=== PATIENT | male | born 1985 | race Caucasian/White ===

== ENCOUNTER 2024-12-15 05:00 | Emergency (ER) | payer OTHER, SELFPAY ==
[2024-12-15] VITALS (7 sets, daily range): BP systolic 93–142; BP diastolic 43–78; PULSE 56–84; RESP 16–19; TEMP 36.4–36.7; O2SAT 93–100; BMI 42.0
--- NOTE | 2024-12-15 05:21 | CT_ITS ---
PROCEDURE INFORMATION: Exam: CT Abdomen And Pelvis With Contrast Exam date and time: 12/15/2024 5:50 AM Age: 39 years old Clinical indication: Abdominal pain; Flank; Left; Additional info: Left flank pain TECHNIQUE: Imaging protocol: Computed tomography of the abdomen and pelvis with contrast. Radiation optimization: All CT scans at this facility use at least one of these dose optimization techniques: automated exposure control; mA and/or kV adjustment per patient size (includes targeted exams where dose is matched to clinical indication); or iterative reconstruction. Contrast material: ISOVUE; Contrast volume: 75 ml; Contrast route: IV; COMPARISON: No relevant prior studies available. FINDINGS: Liver: Hepatomegaly 21 cm Gallbladder and biliary ducts: The gallbladder is unremarkable Pancreas: Normal. No ductal dilation. Spleen: Borderline splenomegaly 13 cm Adrenal glands: Normal. No mass. Kidneys and ureters: Five millimeter proximal LEFT ureteral calculus causes mild dilatation of LEFT collecting system and LEFT ureter. The LEFT kidney is edematous and there is LEFT perirenal stranding. Stomach and bowel: Unremarkable. No obstruction. No mucosal thickening. Appendix: No evidence of appendicitis. Intraperitoneal space: Unremarkable. No free air. No significant fluid collection. Vasculature: Unremarkable. No abdominal aortic aneurysm. Lymph nodes: Unremarkable. No enlarged lymph nodes. Urinary bladder: Unremarkable as visualized. Reproductive: Unremarkable as visualized. Bones/joints: Unremarkable. No acute fracture. Soft tissues: Umbilical hernia contains fat IMPRESSION: Five millimeter proximal LEFT ureteral calculus causes mild dilatation of LEFT collecting system and LEFT ureter. The LEFT kidney is edematous and there is LEFT perirenal stranding. Borderline splenomegalyDifferential diagnosis of splenomegaly is lymphoma/leukemia, mononucleosis, hemolytic anemia, portal hypertension.
--- NOTE | 2024-12-15 05:25 | ED_ITS ---
Discharge Plan Disposition Patient Disposition: Home, Self-Care Prescriptions Prescriptions: New oxycodone 5 mg tablet 5 mg PO Q6H PRN (Reason: pain) Qty: 12 0RF ketorolac 10 mg tablet 10 mg PO Q8H PRN (Reason: pain) 3 Days Qty: 10 0RF tamsulosin [Flomax] 0.4 mg capsule 0.4 mg PO DAILY Qty: 7 0RF ondansetron 4 mg tablet,disintegrating 4 mg PO Q6H PRN (Reason: nausea and vomiting) Qty: 16 0RF Activity Restrictions/Add. Instructions Additional Instructions/Restrictions: You have a 5 mm kidney stone on the left side. Over the next few days, the stone should pass on its own. I am prescribing oxycodone as well as Toradol to help with your pain. T2015 niki these as prescribed. In addition to this, you can take 1000 mg of Tylenol every 6 hours as needed. You are also being prescribed Flomax to help pass the kidney stone. It is important that you continue to drink as much fluid as you can, including water, sugar-free Gatorade and Pedialyte to stay hydrated. You are also being prescribed Zofran to help with nausea. If you develop any new or worsening symptoms, such as uncontrolled pain, fever, or if you become concerned for your health for any reason, return to the emergency department for evaluation. Clinical Impressions Clinical Impression: Ureterolithiasis Print Language Print Language: Faroese Discharge ED Provider: Jermaine Davey General Adult HPI <Jermaine Davey MD - Last Filed: 12/15/24 07:01> General Chief complaint: PAIN Stated complaint: lower Left abd, back pain, nausea Time Seen by Provider: 12/15/24 05:19 Mode of Arrival: Ambulatory Source of Information: Patient Description of Symptoms (Recalled from ER Triage Doc. by RN): Pt presents with left lower back pain radiating into his left flank that began when he woke up at 4am. No hx of kidney stones, denies any urinary symptoms. Pt feels nauseated from pain, states he felt fine before going to bed lastnight. History of Present Illness HPI narrative: 39-year-old male presents to the ER with left flank pain that woke him up suddenly around 4 AM. Patient reports no history of kidney stones and denies any painful urination. No blood in the urine. Patient reports he is having nausea from the pain. He states he has never had symptoms like this before. He has no constipation or diarrhea. Pain is in the left flank and radiating deep . No fevers or chills. No chest pain or difficulty breathing. No numbness, tingling, or weakness. No recent illness. No other complaints or concerns. Patient denies any known chronic medical conditions, no daily medications, no known drug allergies. Related Data Previous Rx's ?Medication ?Instructions ?Recorded ketorolac 10 mg tablet 10 mg PO Q8H PRN pain 3 days #10 12/15/24 tabs ondansetron 4 mg disintegrating 4 mg PO Q6H PRN nausea and 12/15/24 tablet vomiting #16 tabs oxycodone 5 mg tablet 5 mg PO Q6H PRN pain #12 tab s 12/15/24 tamsulosin 0.4 mg capsule (Flomax) 0.4 mg PO DAILY #7 caps 12/15/24 Allergies Allergy/AdvReac Type Severity Reaction Status Date / Time No Known Allergies Allergy Verified 12/15/24 05:12 [facility] <Jermaine Davey MD - Last Filed: 12/15/24 07:01> [facility] Disclaimer: The information contained in this section may have been updated after the patient was seen, as this information can be updated by other users. Social History (Updated 12/15/24 @ 07:01 by Jermaine Davey MD) Smoking Status: Current some day smoker alcohol intake: never current occupational status: employed Travel in the last 8 weeks?: None Have you lived/traveled outside [place] in past 30 days?: No Contact w/someone who lives/traveled outside US past 30 days?: No Exposure to someone with infectious disease in past 14 days?: No Do you have a fever (greater than 100.4 F or 38 C)?: No Have you tested positive for COVID-19?: No Exposed to someone with COVID-19 in past 14 days?: No Do you have a sore throat?: No Do you have a cough?: No Do you have any weakness?: No Do you have any diarrhea?: No Are you experiencing any unusual bleeding?: No Do you have any muscle aches/pain?: No Do you have any abdominal pain?: Yes Are you experiencing loss of taste or smell?: No <Jermaine Davey MD - Last Filed: 12/15/24 07:01> ROS Obtained: Yes Systems reviewed as appropriate & no additional complaints except as documented per HPI Physical Exam <Jermaine Davey MD - Last Filed: 12/15/24 07:01> General General appearance: alert Comment: Appears uncomfortable, diaphoretic Head Head exam: atraumatic and normocephalic Eye Eye exam: Present PERRL and EOMI ENT ENT exam: Present mucous membranes moist Neck Neck exam: Present normal inspection and full ROM Chest Chest inspection: Present symmetric chest wall rise; Absent tenderness Respiratory Respiratory exam: Present normal lung sounds bilaterally; Absent respiratory distress, wheezes or stridor Cardiovascular Cardiovascular exam: Present regular rate and normal rhythm Abdominal Exam Abdominal exam: Present soft; Absent distention, tenderness, guarding or rebound Extremities Exam Extremities exam: Present full ROM Back Exam Back exam: Present CVA tenderness (L); Absent CVA tenderness (R) Neurological Exam Neurological exam: Present alert and oriented X3; Absent motor sensory deficit Psychiatric Psychiatric exam: Present normal affect and normal mood Skin Skin exam: Present warm and dry Medical Decision Making <Jermaine Davey MD - Last Filed: 12/15/24 07:01> Medical Records Screening: Per USPSTF and CDC recommendations, given the prevalence of disease in our region, it is our hospital?s policy to screen for HIV and viral Hepatitis for all patients aged 18 and over and those with ongoing risk factors. Eliazar Inquiry Pt receiving controlled substance: No Vital Signs: 12/15/24 05:08 12/15/24 06:01 12/15/24 06:19 Temperature 97.6 F 97.6 F Temperature Source Oral Oral Pulse Rate 56 L 84 Pulse Rate [Left] 81 Respiratory Rate 18 19 Blood Pressure 142/76 H 128/78 Blood Pressure [Right Arm] 111/74 Blood Pressure Mean Blood Pressure Mean [Right Arm] 86 Blood Pressure Source Automatic Cuff Blood Pressure Source [Right Arm] Automatic Cuff Blood Pressure Position Sitting Blood Pressure Position [Right Arm] Sitting 02 Sat by Pulse Oximetry 100 97 95 Oxygen Delivery Method Room Air Room Air 12/15/24 06:25 12/15/24 06:31 12/15/24 07:00 Temperature Temperature Source Pulse Rate 61 57 L Pulse Rate [Left] Respiratory Rate 16 Blood Pressure 142/76 H 93/43 L 104/67 L Blood Pressure [Right Arm] Blood Pressure Mean 62 75 Blood Pressure Mean [Right Arm] Blood Pressure Source Blood Pressure Source [Right Arm] Blood Pressure Position Blood Pressure Position [Right Arm] 02 Sat by Pulse Oximetry 93 L 96 96 Oxygen Delivery Method Room Air Lab Data Lab Results 12/15/24 05:11: WBC 10.3, RBC 5.35, Hgb 15.8, Hct 46.4, MCV 86.7, MCH 29.5, MCHC 34.1, RDW 13.2, Plt Count 285, MPV 9.4, Neut % (Auto) 56.8, Lymph % (Auto) 30.1, [place] % (Auto) 8.4, Eos % (Auto) 3.5, Baso % (Auto) 0.6, Neut # (Auto) 5.9, Lymph # (Auto) 3.1, [place] # (Auto) 0.9, Eos # (Auto) 0.4, Baso # (Auto) 0.1, Sodium 141, Potassium 3.9, Chloride 103, Carbon Dioxide 26, Anion Gap 15.9 H, BUN 15, Creatinine 1.20, Estimated Creat Clear 89, Estimated GFR 67, Est GFR ( Amer) 81, Glucose 113 H, Calcium 9.3, Total Bilirubin 0.9, AST 37, ALT 30, Alkaline Phosphatase 81, Total Protein 8.3 H, Albumin 4.5, Globulin 3.8 H, Albumin/Globulin Ratio 1.2, Lipase 97 12/15/24 06:12: Urine Color Yellow, Urine Appearance Clear, Urine pH 6.0, Ur Specific [place] 1.025, Urine Protein Trace, Urine Glucose (UA) Negative, Urine Ketones Negative, Urine Blood 3+ A, Urine Nitrate Negative, Urine Bilirubin 1+ A , Urine Urobilinogen 0.2, Ur Leukocyte Esterase Negative, Urine RBC Tntc, Urine WBC None, Ur Squamous Epith Cells None, Urine Bacteria Trace 12/15/24 05:11 12/15/24 05:11 Orders (Tests/Meds): ED MEDICATIONS Discontinued Medications Generic Name Dose Route Start Last Admin Trade Name Freq PRN Reason Stop Dose Admin Acetaminophen 1,000 mg 12/15/24 07:21 12/15/24 07:32 Acetaminophen 1,000mg/100ml Vial IV 12/15/24 07:22 1,000 mg ONCE ONE Administration Hydromorphone HCl 0.5 mg 12/15/24 06:57 12/15/24 07:00 Hydromorphone 2mg/Ml Syringe IV 12/15/24 06:58 0.5 mg ONCE ONE Administration Lactated Ringer's 1,000 mls @ 999 mls/hr 12/15/24 05:21 12/15/24 06:39 Lactated Ringer's 1000 Ml Bag IV 12/15/24 06:21 Infused .Q1H1M ONE Infusion Iopamidol 75 ml 12/15/24 05:58 12/15/24 05:59 Iopamidol-370 (76%);100ml Bottle IV 12/15/24 05:59 75 ml ONCE ONE Administration Ketorolac Tromethamine 30 mg 12/15/24 05:21 12/15/24 05:31 Ketorolac 30mg/Ml Vial IV 12/15/24 05:22 30 mg ONCE ONE Administration Morphine Sulfate 4 mg 12/15/24 05:21 12/15/24 05:31 Morphine 4mg/Ml Syringe IV 12/15/24 05:22 4 mg ONCE ONE Administration Ondansetron HCl 4 mg 12/15/24 05:21 12/15/24 05:31 Ondansetron 4mg/2ml Vial IV 12/15/24 05:22 4 mg ONCE ONE Administration Oxycodone HCl 5 mg 12/15/24 06:03 12/15/24 06:16 Oxycodone 5mg Immediate Release Tablet PO 12/15/24 06:04 5 mg ONCE ONE Administration Sodium Chloride 10 ml 12/15/24 05:58 12/15/24 05:59 Sodium Chloride 0.9% 10ml Syr (Rad Only) IV 12/15/24 05:59 10 ml ONCE ONE Administration Tamsulosin HCl 0.4 mg 12/15/24 06:04 12/15/24 06:16 Tamsulosin 0.4mg Capsule PO 12/15/24 06:05 0.4 mg ONCE ONE Administration ORDERS Category Date Time Status CT abdomen pelvis w con Stat Cat Scan 12/15/24 05:21 Completed CBC w/Auto Diff [Complete Blood Count Auto Diff] Stat Lab 12/15/24 05:11 Completed CMP [Comprehensive Metabolic Panel] Stat Lab 12/15/24 05:11 Completed Lipase Stat Lab 12/15/24 05:11 Completed Urinalysis and Microscopic Stat Lab 12/15/24 06:12 Completed Medical Decision Narrative: In summary, this 39-year-old male presents to the emergency department today with acute left flank pain. On initial evaluation patient is hemodynamically stable, afebrile, appears to obviously be in pain, diaphoretic, exam otherwise only notable for left CVA tenderness. Differential diagnosis includes but is not limited to ureterolithiasis, hydronephrosis, kidney dysfunction, urinary tract infection, pyelonephritis, also considered the possibility of pancreatitis, bowel obstruction, among others. Based on these concerns, I ordered hematologic and serum labs, urinalysis, CT imaging. Patient received Toradol, morphine, Zofran, IV fluids initially for treatment. Labs personally reviewed demonstrate no leukocytosis or anemia, platelets normal, CBC is normal overall. CMP nonactionable, no evidence of kidney dysfunction. UA negative for findings of infection, leukocyte esterase and nitrate negative. There is the presence of blood which could be related to stone. CT abdomen pelvis personally interpreted demonstrates approximately 5 to 6 mm stone in the left mid ureter with upstream hydronephrosis. Radiology read pending at this time. On reassessment after initial medications patient was still having pain so he received oral oxycodone. On further reassessment he is still having pain so he is receiving IV Dilaudid. Patient would like to try to get control of his pain here in the ER and would prefer to be discharged if possible though we have discussed the possibility of needing transfer if he has intractable pain. Patient handed off to Dr. Ratliff in stable condition pending radiology read, reassessment. <Roman Ratliff MD - Last Filed: 12/15/24 07:43> Vital Signs: 12/15/24 05:08 12/15/24 06:01 12/15/24 06:19 Temperature 97.6 F 97.6 F Temperature Source Oral Oral Pulse Rate 56 L 84 Pulse Rate [Left] 81 Respiratory Rate 18 19 Blood Pressure 142/76 H 128/78 Blood Pressure [Right Arm] 111/74 Blood Pressure Mean Blood Pressure Mean [Right Arm] 86 Blood Pressure Source Automatic Cuff Blood Pressure Source [Right Arm] Automatic Cuff Blood Pressure Position Sitting Blood Pressure Position [Right Arm] Sitting 02 Sat by Pulse Oximetry 100 97 95 Oxygen Delivery Method Room Air Room Air 12/15/24 06:25 12/15/24 06:31 12/15/24 07:00 Temperature Temperature Source Pulse Rate 61 57 L Pulse Rate [Left] Respiratory Rate 16 Blood Pressure 142/76 H 93/43 L 104/67 L Blood Pressure [Right Arm] Blood Pressure Mean 62 75 Blood Pressure Mean [Right Arm] Blood Pressure Source Blood Pressure Source [Right Arm] Blood Pressure Position Blood Pressure Position [Right Arm] 02 Sat by Pulse Oximetry 93 L 96 96 Oxygen Delivery Method Room Air Lab Data Lab Results 12/15/24 05:11: WBC 10.3, RBC 5.35, Hgb 15.8, Hct 46.4, MCV 86.7, MCH 29.5, MCHC 34.1, RDW 13.2, Plt Count 285, MPV 9.4, Neut % (Auto) 56.8, Lymph % (Auto) 30.1, [place] % (Auto) 8.4, Eos % (Auto) 3.5, Baso % (Auto) 0.6, Neut # (Auto) 5.9, Lymph # (Auto) 3.1, [place] # (Auto) 0.9, Eos # (Auto) 0.4, Baso # (Auto) 0.1, Sodium 141, Potassium 3.9, Chloride 103, Carbon Dioxide 26, Anion Gap 15.9 H, BUN 15, Creatinine 1.20, Estimated Creat Clear 89, Estimated GFR 67, Est GFR ( Amer) 81, Glucose 113 H, Calcium 9.3, Total Bilirubin 0.9, AST 37, ALT 30, Alkaline Phosphatase 81, Total Protein 8.3 H, Albumin 4.5, Globulin 3.8 H, Albumin/Globulin Ratio 1.2, Lipase 97 12/15/24 06:12: Urine Color Yellow, Urine Appearance Clear, Urine pH 6.0, Ur Specific [place] 1.025, Urine Protein Trace, Urine Glucose (UA) Negative, Urine Ketones Negative, Urine Blood 3+ A, Urine Nitrate Negative, Urine Bilirubin 1+ A , Urine Urobilinogen 0.2, Ur Leukocyte Esterase Negative, Urine RBC Tntc, Urine WBC None, Ur Squamous Epith Cells None, Urine Bacteria Trace Orders (Tests/Meds): ED MEDICATIONS Discontinued Medications Generic Name Dose Route Start Last Admin Trade Name Freq PRN Reason Stop Dose Admin Acetaminophen 1,000 mg 12/15/24 07:21 12/15/24 07:32 Acetaminophen 1,000mg/100ml Vial IV 12/15/24 07:22 1,000 mg ONCE ONE Administration Hydromorphone HCl 0.5 mg 12/15/24 06:57 12/15/24 07:00 Hydromorphone 2mg/Ml Syringe IV 12/15/24 06:58 0.5 mg ONCE ONE Administration Lactated Ringer's 1,000 mls @ 999 mls/hr 12/15/24 05:21 12/15/24 06:39 Lactated Ringer's 1000 Ml Bag IV 12/15/24 06:21 Infused .Q1H1M ONE Infusion Iopamidol 75 ml 12/15/24 05:58 12/15/24 05:59 Iopamidol-370 (76%);100ml Bottle IV 12/15/24 05:59 75 ml ONCE ONE Administration Ketorolac Tromethamine 30 mg 12/15/24 05:21 12/15/24 05:31 Ketorolac 30mg/Ml Vial IV 12/15/24 05:22 30 mg ONCE ONE Administration Morphine Sulfate 4 mg 12/15/24 05:21 12/15/24 05:31 Morphine 4mg/Ml Syringe IV 12/15/24 05:22 4 mg ONCE ONE Administration Ondansetron HCl 4 mg 12/15/24 05:21 12/15/24 05:31 Ondansetron 4mg/2ml Vial IV 12/15/24 05:22 4 mg ONCE ONE Administration Oxycodone HCl 5 mg 12/15/24 06:03 12/15/24 06:16 Oxycodone 5mg Immediate Release Tablet PO 12/15/24 06:04 5 mg ONCE ONE Administration Sodium Chloride 10 ml 12/15/24 05:58 12/15/24 05:59 Sodium Chloride 0.9% 10ml Syr (Rad Only) IV 12/15/24 05:59 10 ml ONCE ONE Administration Tamsulosin HCl 0.4 mg 12/15/24 06:04 12/15/24 06:16 Tamsulosin 0.4mg Capsule PO 12/15/24 06:05 0.4 mg ONCE ONE Administration ORDERS Category Date Time Status CT abdomen pelvis w con Stat Cat Scan 12/15/24 05:21 Completed CBC w/Auto Diff [Complete Blood Count Auto Diff] Stat Lab 12/15/24 05:11 Completed CMP [Comprehensive Metabolic Panel] Stat Lab 12/15/24 05:11 Completed Lipase Stat Lab 12/15/24 05:11 Completed Urinalysis and Microscopic Stat Lab 12/15/24 06:12 Completed Medical Decision Narrative: In summary, this 39-year-old male presents to the emergency department today with acute left flank pain. On initial evaluation patient is hemodynamically stable, afebrile, appears to obviously be in pain, diaphoretic, exam otherwise only notable for left CVA tenderness. Differential diagnosis includes but is not limited to ureterolithiasis, hydronephrosis, kidney dysfunction, urinary tract infection, pyelonephritis, also considered the possibility of pancreatitis, bowel obstruction, among others. Based on these concerns, I ordered hematologic and serum labs, urinalysis, CT imaging. Patient received Toradol, morphine, Zofran, IV fluids initially for treatment. Labs personally reviewed demonstrate no leukocytosis or anemia, platelets normal, CBC is normal overall. CMP nonactionable, no evidence of kidney dysfunction. UA negative for findings of infection, leukocyte esterase and nitrate negative. There is the presence of blood which could be related to stone. CT abdomen pelvis personally interpreted demonstrates approximately 5 to 6 mm stone in the left mid ureter with upstream hydronephrosis. Radiology read pending at this time. On reassessment after initial medications patient was still having pain so he received oral oxycodone. On further reassessment he is still having pain so he is receiving IV Dilaudid. Patient would like to try to get control of his pain here in the ER and would prefer to be discharged if possible though we have discussed the possibility of needing transfer if he has intractable pain. Patient handed off to Dr. Ratliff in stable condition pending radiology read, reassessment. Roman Ratliff MD At the time my assumption of care, plan was to follow-up CT report and reassess patient for adequate pain control Ultimately, patient's workup showed a 5 mm proximal left ureteral calculus with mild show the left collecting system and left ureter. Left kidney is edematous and there is left perirenal stranding. Borderline splenomegaly. See radiology report for details. Patient's workup was reviewed by me personally. He has no leukocytosis. No fever. No evidence of urinary tract infection on urinalysis. On reassessment, patient states that his pain is not resolved but is much better than when he initially arrived. He does feel that his pain is migrating now more to the left lower quadrant, which could be secondary to stone migrating down the ureter. Patient was to try to pass the stone on his own at home. Patient was given 1000 mg of IV Tylenol for continued pain here in the emergency department. It is felt that trying to pass the stone at home is reasonable given its size and his current level of pain. Will prescribe oxycodone, Toradol for pain control as well as continued Flomax and Zofran for nausea. Encouraged him to continue hydrating at home. Return precautions were given. All questions were answered. He demonstrated understanding and was in agreement this plan. He was then discharged from the emergency department in stable condition. Critical Care <Jermaine Davey MD - Last Filed: 12/15/24 07:01> Critical Care Time Critical Care Time: No
[2024-12-15 05:31] LABS: Albumin Level 4.5 g/dl (3.5-5.0); Chloride 103 mmol/L (98-107); Sodium 141 mmol/L (136-145)
[2024-12-15] MEDS: KETOROLAC 30MG/ML VIAL 30 MG IV (05:31)
[2024-12-15] MEDS: MORPHINE 4MG/ML SYRINGE 4 MG IV (05:31)
[2024-12-15] MEDS: ONDANSETRON 4MG/2ML VIAL 4 MG IV (05:31)
[2024-12-15 05:32] LABS: Potassium 3.9 mmoL/L (3.5-5.1)
[2024-12-15] MEDS: LACTATED RINGERS 1000ML 1,000 ML 999 ML IV (05:32)
[2024-12-15 05:34] LABS: Alanine Aminotransferase 30 U/L (12-78); Albumin/Globulin Ratio 1.2 (1.1-1.8); Alkaline Phosphatase 81 U/L (38-126); Anion Gap 15.9 mEq/L (5-15); Aspartate Amino Transferase 37 U/L (17-59); Bilirubin,Total 0.9 mg/dl (0.2-1.3); Blood Urea Nitrogen 15 mg/dl (9-20); Carbon Dioxide 26 mmol/L (22.0-30.0); Creatinine Clearance Estimated 89 mL/min (50-200); Creatinine,Serum 1.20 mg/dl (0.66-1.25); Estimated Glomerular Filt Rate 67 ml/min (>60); GFR (African American) 81 ML/MIN (>60); Globulin 3.8 g/dL (1.3-3.2); Total Protein,Serum 8.3 g/dl (6.3-8.2)
[2024-12-15 05:35] LABS: Calcium 9.3 mg/dl (8.4-10.2); Glucose 113 mg/dl (74-100); Lipase 97 U/L (23-300)
[2024-12-15 05:37] LABS: Hematocrit 46.4 % (42.0-52.0); Hemoglobin 15.8 g/dL (14.1-18.0); Immature Granulocytes % 0.6 %; Mean Corpuscular HGB Conc 34.1 g/dL (31.8-35.4); Mean Corpuscular Hemoglobin 29.5 pg (27.0-31.2); Mean Corpuscular Volume 86.7 fl (80-94); Nucleated Red Blood Cells % 0 %; Platelet Count 285 K/mm3 (142-424); Red Blood Count 5.35 M/mm3 (4.60-6.20); Red Cell Distribution Width-SD 41.5 fL; White Blood Count 10.3 K/mm3 (4.8-10.8)
[2024-12-15] MEDS: SODIUM CHLORIDE 0.9% 10ML SYR (RAD ONLY) 10 ML IV (05:59)
[2024-12-15] MEDS: IOPAMIDOL-370 (76%);100ML BOTTLE 75 ML IV (05:59)
[2024-12-15] MEDS: TAMSULOSIN 0.4MG CAPSULE 0.4 MG PO (06:16)
[2024-12-15] MEDS: OXYCODONE 5MG IMMEDIATE RELEASE TABLET 5 MG PO (06:16)
[2024-12-15 06:20] LABS: Microscopic, Urine URINE MICROSCOPIC (MICROSCOPIC)
[2024-12-15 06:27] LABS: Color,Urine YELLOW (Yellow); Glucose,Urine (UA) Negative (Negative); Ketones,Urine Negative (Negative); Leukocyte Esterase,Urine Negative (Negative); PH,Urine 6.0 (5.0-8.5); Protein,Urine TRACE (Negative); Specific Gravity, Urine 1.025 (1.005-1.030); Urobilinogen,Urine 0.2 EU/dl (0.2)
[2024-12-15 06:33] LABS: Bilirubin,Urine 1+ (Negative)
[2024-12-15] MEDS: HYDROMORPHONE 2MG/ML SYRINGE 0.5 MG IV (07:00)
[2024-12-15 07:01] LABS: Bacteria,Urine Trace /lpf; RBC,Urine TNTC #/hpf (0-3)
[2024-12-15] MEDS: ACETAMINOPHEN 1,000MG/100ML VIAL 1000 MG IV (07:32)
--- NOTE | 2024-12-15 09:11 | PC.NURSE ---
Clinic pharmacy called and wanted to confirm that the pt received Toradol and the route the pt received it.
== END 2024-12-15 08:01 | disposition home or self-care (01) ==
PROVIDERS: Emergency Provider Emergency Medicine
DX: R10.9 Unspecified abdominal pain (principal); N20.1 Calculus of ureter; R11.0 Nausea; F17.200 Nicotine dependence, unspecified, uncomplicated
CPT/HCPCS: 74177; 80053; 81001; 83690; 85025; 96365; 96375; 99285; J0131; J1171; J1885; J2270; J2405; J7120; Q9967